=== PATIENT | female | born 1985 | race Two or more races ===

== ENCOUNTER 2023-10-11 13:39 | Emergency (ER) | payer OTHER ==
[~2023-10-11] VITALS: Ht 160 cm; Wt 66.2 kg
[2023-10-11] MEDS ORDERED: PRENA1 CHEW TA1.4 MG PO (13:58)
[2023-10-11 16:06] LABS: MEAN CELL VOLUME 86.2 fL (80.00-100.00); MEAN CORPUSCULAR HEMOGLOBIN 29.3 pg (27.00-32.0); PLATELET COUNT 282 K/uL (150-450); RED BLOOD COUNT 4.76 M/uL (4.00-6.00); RED CELL DISTRIBUTION WIDTH 12.9 % (11.5-14.5)
[2023-10-11 16:25] LABS: INR 0.95; PARTIAL THROMBOPLASTIN TIME 31.3 SECONDS (22.0-34.0)
[2023-10-11 16:26] LABS: CALCIUM 9.5 mg/dL (8.5-10.1); CREATININE SERUM 0.64 mg/dL (0.55-1.02); GFR 105.6; POTASSIUM 3.59 mEq/L (3.5-5.1)
[2023-10-11 17:20] LABS: PH,URINE 5.5 (5.0-8.0); URINE APPEARANCE Cloudy; URINE BILIRRUBIN Negative (NEGATIVE); URINE BLOOD Negative; URINE COLOR Dark Yellow; URINE GLUCOSE Negative (NEGATIVE); URINE LEUKOCYTE Moderate; URINE NITRATE Negative; URINE PROTEIN Negative (NEGATIVE); URINE UROBILINOGEN 0.2 E.U./dl
[2023-10-11 17:22] LABS: URINE BACTERIA 4085.9 uL (0.0-1933); URINE EPITHELIAL CELLS 137.2 uL (0.0-38.8); URINE RBC 43.1 uL (0.0-20.8); URINE WBC 72.9 uL (0.0-23.2)
== END 2023-10-11 18:08 | disposition home or self-care (01) ==
LOC: ER 13:40
PROVIDERS: General Practice
DX: O26.899 Other specified pregnancy related conditions, unspecified trimester (principal); Z3A.01 Less than 8 weeks gestation of pregnancy; R30.0 Dysuria